=== PATIENT | female | born 1960 | race Caucasian/White ===

== ENCOUNTER 2018-11-13 00:56 | Outpatient (CLI) | payer OTHER ==
--- NOTE | 2018-11-16 13:34 | EKG ---
Test Reason : Blood Pressure : / mmHG Vent. Rate : 077 BPM Atrial Rate : 077 BPM P-R Int : 134 ms QRS Dur : 078 ms QT Int : 382 ms P-R-T Axes : 051 015 065 degrees QTc Int : 432 ms Normal sinus rhythm Low voltage QRS Cannot rule out Anterior infarct , age undetermined Abnormal ECG No previous ECGs available Confirmed by DR. Mushtaq JOY ([id number]) on 11/16/2018 1:34:19 PM Referred By: TRINO Confirmed By:DR. Mushtaq JOY
== END 2018-11-13 00:57 | disposition home or self-care (01) ==
LOC: LABBT 00:56
PROVIDERS: ATTEND Obstetrics & Gynecology
DX: Z01.818 Encounter for other preprocedural examination (principal); N83.201 Unspecified ovarian cyst, right side; R10.2 Pelvic and perineal pain
CPT/HCPCS: 93005; 93010

== ENCOUNTER 2018-11-14 09:09 | Day surgery (SDC) | payer OTHER ==
[2018-11-13 17:11] VITALS: BMI 29.2
[2018-11-13 17:59] LABS: Hemoglobin 13.8 g/dL (12.0-16.0); Mean Corpuscular HGB CONC 35.2 g/dL (32.0-36.0); Mean Corpuscular Hemoglobin 32.9 pg (27.0-31.0); Mean Corpuscular Volume 93.6 fL (78.0-98.0); Mean Platelet Volume 6.9 fL (7.4-10.4); Platelet Count 360 thou/uL (130-400); RBC Distribution Width 11.5 % (11.5-14.5); White Blood Cell (WBC) Count 7.8 thou/uL (4.8-10.8)
[2018-11-13 18:16] LABS: Anion Gap 12 mmol/L (10-20); BUN (Urea Nitrogen) 8 mg/dL (9.8-20.1); Calc. Creatinine Clearance 0 mL/min (70-130); Calcium 9.8 mg/dL (7.8-10.44); Carbon Dioxide 26 mmol/L (22-29); Chloride 103 mmol/L (98-107); Estimated GFR-MDRD 85; Glucose 110 mg/dL (70-105); Potassium 3.9 mmol/L (3.5-5.1); Sodium 137 mmol/L (136-145)
--- NOTE | 2018-11-13 21:52 | HP ---
SCHEDULED PROCEDURE: Laparoscopic BSO with Da Jacques. HISTORY OF PRESENT ILLNESS: Ms. Pearson is a 57-year-old, status post hysterectomy, has a long history of recurrent right lower quadrant pain associated with recurrent simple cyst of the right adnexa. She is postmenopausal. She desires definitive surgical management and prophylactic left salpingo-oophorectomy. TABLE GAMES DEALER HISTORY: x2, SAB x1. Post hysterectomy. Negative Pap. PAST MEDICAL HISTORY: Significant for pelvic pain, hypertension, hyperlipidemia, and hypothyroidism. PAST SURGICAL HISTORY: Hysterectomy, BTL, and colonoscopy. SOCIAL HISTORY: Denies tobacco, alcohol, or drug abuse. ALLERGIES: NONE. MEDICATIONS: 1. Atorvastatin. 2. Citalopram. 3. Cyclobenzaprine. 4. Estradiol. 5. Lisinopril. 6. HCTZ. 7. Synthroid. PHYSICAL EXAMINATION: VITAL SIGNS: White female, 5 feet, 2 inches, weight 167, BMI 30, and blood pressure 132/64. HEENT: Within normal limits. LUNGS: Clear to auscultation bilaterally. HEART: Regular rhythm. BREASTS: No masses bilaterally. ABDOMEN: Soft and nontender. No rebound or guarding. GENITALIA: Vulva without lesions. Vagina without discharge. Vaginal cuff intact. Bimanual exam reveals no masses, but discomfort in the right lower quadrant on bimanual. EXTREMITIES: Without clubbing, cyanosis, or edema. DIAGNOSTIC STUDIES: Ultrasound reveals a 3 cm simple right ovarian cyst without septations or free fluid. Left adnexa is within normal limits. IMPRESSION: Persistent recurrent right lower quadrant pain that seems to be associated with right ovarian cyst. PLAN: I discussed with the patient options. We will proceed with laparoscopic BSO with removal of right ovary as well as left ovary too. The patient understands risks and benefits of procedure. Administer appropriate antibiotic and DVT prophylaxis. Job ID: [id number]
[2018-11-14] MEDS ORDERED: Ondansetron PF 4 MG/2 ML Vial ONE (09:47)
[2018-11-14] MEDS ORDERED: Rocuronium Bromide 10 MG/ML (10ML VIAL) ONE (09:47)
[2018-11-14] MEDS ORDERED: Dexamethasone 20 MG/5 ML VIAL ONE (09:47)
[2018-11-14] MEDS ORDERED: PROPOFOL 200 MG/20 ML VIAL ONE (09:47)
[2018-11-14] MEDS ORDERED: Glycopyrrolate 0.2 MG/ML 5 ML SYRINGE ONE (09:47)
[2018-11-14] MEDS ORDERED: ePHEDrine 50 MG/ML VIAL ONE (09:47)
[2018-11-14] MEDS ORDERED: Lidocaine 1% PF 5 ML VIAL ONE (09:47)
[2018-11-14] MEDS ORDERED: Gabapentin 300 MG CAP ONE (10:17)
[2018-11-14] MEDS ORDERED: Famotidine/PF 20 mg/2ml Vial ONE (10:17)
[2018-11-14] MEDS ORDERED: CeleCOXIB 100 MG CAP ONE (10:17)
[2018-11-14] MEDS ORDERED: Fentanyl 100 MCG/2 ML VIAL ONE ×3 (12:29→14:50)
[2018-11-14] MEDS ORDERED: Bupivacaine HCl 0.5%/Epinephrine 1:200,000/PF 30 ml Vial ONE (12:34)
[2018-11-14] MEDS ORDERED: Morphine 2 MG/ML SYRINGE ONE (16:56)
[2018-11-14 18:16] LABS: Hemoglobin 13.4 g/dL (12.0-16.0); Mean Corpuscular HGB CONC 33.8 g/dL (32.0-36.0); Mean Corpuscular Volume 94.6 fL (78.0-98.0); Mean Platelet Volume 6.7 fL (7.4-10.4); Platelet Count 335 thou/uL (130-400); RBC Distribution Width 11.6 % (11.5-14.5); Red Blood Cell (RBC) Count 4.19 mill/uL (4.20-5.40); White Blood Cell (WBC) Count 12.6 thou/uL (4.8-10.8)
[2018-11-14] MEDS ORDERED: HYDROcodone/Acetaminophen 5/325 mg Tablet ONE (19:14)
--- NOTE | 2018-11-14 20:43 | OP ---
DATE OF PROCEDURE: 11/14/2018 PREOPERATIVE DIAGNOSIS: Chronic right pelvic pain with recurrent right simple ovarian cyst, desires prophylactic left salpingo-oophorectomy. PROCEDURE PERFORMED: Laparoscopic bilateral salpingo-oophorectomy. SNUFF DRIER: Valerie Carvalho DO. ANESTHESIA: General endotracheal. ESTIMATED BLOOD LOSS: Less than 10 mL. MEDICATIONS: 2 g Ancef preincision. SPECIMENS REMOVED: Bilateral tubes and ovaries. OPERATIVE FINDINGS: 1. Right tube and ovary with small simple cyst. Minimal adhesions along the right pelvic wall, status post hysterectomy. 2. Left tube and ovary without pathologic abnormality, but with multiple adhesions to the appendices epiploicae on the descending and sigmoid colon on the left side. 3. Good hemostasis, clear urine. COUNTS: Correct at the end of the procedure. DISPOSITION: Recovery room in good condition. DESCRIPTION OF PROCEDURE: After obtaining appropriate informed consent, the patient was taken to the operating room where general endotracheal anesthesia was achieved without difficulty. The patient was prepped and draped in dorsal lithotomy position in Jese stirrups. Sponge stick placed in the vagina and a Mckenzie catheter placed, draining the bladder of approximately 200 mL of clear urine. Orchard Sprayer changed his gloves, turned attention to abdominal portion of the procedure, 5 mL of Marcaine was injected into the base of the umbilicus, and a 12 mm skin incision was made. Veress needle was placed inside the abdominal cavity. Confirmation of entry into the peritoneal cavity was achieved using saline drop test. Insufflation carried out with carbon dioxide, max pressure of 15, volume approximately 3.5 L. A 12 mm non-cutting trocar was introduced and visual confirmation of entry into the peritoneal cavity without trauma to the underlying viscera was noted. The patient was placed in steep Trendelenburg position. Right and left lateral da Jacques trocars were placed under direct visualization as well as an 11 mm orthotics assistant port in the right upper quadrant. Da Jacques robot was docked with monopolar scissors in the right hand and bipolar fenestrated forceps in the left. Findings as noted in the operative findings were noted. The right tube and ovary were mobilized medially and coagulated along the infundibulopelvic ligament as well as its attachments to the scarred broad ligament on the right detaching and remaining well above the level of the bladder and the ureter. Once it was removed, it was placed in the cul-de-sac for retrieval. On the left, adhesions of the appendices epiploicae were noted and these were taken down in a short manner off the tube, ovary, and remnant broad ligament, then the ovary and tube were mobilized toward the midline, coagulated, and transected through the IP and the remnant broad ligament staying above the level of the ureter. Once both specimens were free, inspection revealed good hemostasis bilaterally. Retrieval bag was placed into the 11 mm trocar. Both specimens placed inside and the ovaries were removed through the 11 mm trocar. Da Jacques robot undocked. Abdomen was desufflated of carbon dioxide. Trocars removed x4. Fascia at the umbilicus reapproximated using 0-Vicryl UR5 and skin reapproximated x4 using 4-0 Monocryl and Dermabond. Mckenzie catheter removed and sponge were removed from the vagina. Job ID: [id number]
== END 2018-11-14 19:55 | disposition home or self-care (01) ==
LOC: SDC 09:09
PROVIDERS: ATTEND Obstetrics & Gynecology
PROC: 0UT74ZZ Resection of Bilateral Fallopian Tubes, Percutaneous Endoscopic Approach (ICD-10-PCS; principal; 2018-11-14)
PROC: 0UT24ZZ Resection of Bilateral Ovaries, Percutaneous Endoscopic Approach (ICD-10-PCS; principal; 2018-11-14)
DX: N83.201 Unspecified ovarian cyst, right side (principal); G89.29 Other chronic pain; R10.2 Pelvic and perineal pain; I10 Essential (primary) hypertension; E78.5 Hyperlipidemia, unspecified; E03.9 Hypothyroidism, unspecified; Z79.899 Other long term (current) drug therapy
CPT/HCPCS: 36415; 80048; 85027; 86850; 86900; 86901; 88305; J0670; J0690; J1100; J2001; J2270; J2405; J2704; J3010; J3490; S0028

== ENCOUNTER 2018-11-26 10:02 | Outpatient (CLI) | payer OTHER ==
--- NOTE | 2018-11-26 11:23 | MRI ---
MR CERVICAL SPINE WITHOUT CONTRAST INDICATION: Cervical radiculopathy and neck pain TECHNIQUE: Multiplanar multisequence MR images were obtained of the cervical spine without contrast. COMPARISON: None FINDINGS: Posterior fossa: Within normal limits. Bone marrow signal intensity: Normal Spinal alignment: There is straightening of the normal cervical lordosis. Craniocervical junction: Normal appearing. Prevertebral and perivertebral soft tissues: Visualized soft tissues appear within normal limits. Vertebral levels: C2-C3: There is a small central disc protrusion. There is no appreciable central canal or neural fora enedina narrowing. C3-4: There is [id number] left-sided facet joint degenerative change. There is a mild broad-bas ed disc bulge. C4-5: There is mild facet joint degenerative change but no appreciable central canal or neural florentino inal narrowing. There is a mild broad-based bulge. C5-C6: There is mild facet joint degenerative change but no appreciable central canal or neural florentino inal narrowing. There is a mild broad-based disc bulge. C6-C7:, There is mild facet joint degenerative change and mild broad-based bulge but no appreciable c entral canal or neural foraminal narrowing. C7-T1: No appreciable central canal or neuroforaminal narrowing. IMPRESSION: 1. Mild spondylosis of the cervical spine without appreciable central canal or neural foraminal narro wing.
== END 2018-11-26 10:03 | disposition home or self-care (01) ==
LOC: TBSIIMAG 10:02
PROVIDERS: ATTEND Neurological Surgery
DX: M47.22 Other spondylosis with radiculopathy, cervical region (principal)
CPT/HCPCS: 72141

== ENCOUNTER 2019-02-04 13:48 | Outpatient (CLI) | payer OTHER ==
--- NOTE | 2019-02-04 15:29 | MMO ---
Right Breast MAMMO Unilat Diag DDI RT+AMPARO. CLINICAL HISTORY: Patient is 58 years old and is seen for diagnostic exam,lump or thickening at 3 o'clock and pain in the right breast. The patient has the following family history of breast cancer: maternal aunt and cousin female. The patient has no personal history of cancer. VIEWS: The views performed were: right craniocaudal with tomosynthesis; right mediolateral oblique with tomosynthesis; and right mediolateral with tomosynthesis. FILMS COMPARED: The present examination has been compared to prior imaging studies performed at [facility] on 01/24/2007, at [facility] on 08/22/2018, and at [facility] on 10/23/2016 and 02/04/2019. MAMMOGRAM FINDINGS: There are scattered fibroglandular densities. There are no suspicious masses, calcifications or areas of architectural distortion. There are benign appearing calcifications in the right breast. There are no suspicious masses, suspicious calcifications, or new areas of architectural distortion. IMPRESSION: THERE IS NO MAMMOGRAPHIC EVIDENCE OF MALIGNANCY. WITH REGARD TO THE PALPABLE FOCUS, FURTHER EVALUATION INCLUDING ADDITIONAL IMAGING AND/OR BIOPSY SHOULD BE BASED ON CLINICAL FINDINGS/SUSPICION. A ROUTINE FOLLOW-UP MAMMOGRAM IN 1 YEAR IS RECOMMENDED. THE RESULTS OF THIS EXAM WERE SENT TO THE PATIENT. ACR BI-RADS Category 2 - Benign finding MAMMOGRAPHY NOTE: 1. A negative mammogram report should not delay a biopsy if a dominant of clinically suspicious mass is present. 2. Approximately 10% to 15% of breast cancers are not detected by mammography. 3. Adenosis and dense breasts may obscure an underlying neoplasm. Reported by: IZABELA GARCIA MD Electonically Signed: [id number]
--- NOTE | 2019-02-04 15:35 | ULT ---
RIGHT BREAST ULTRASOUND: 02/04/19 HISTORY: Right breast pain. Palpable focus in the inner lower right breast. TECHNIQUE: Targeted sonographic imaging of the right breast is performed. Static images are reviewed. After read ing the static images, real time imaging was also performed by the radiologist. The region of palpable concern was also palpated by the radiologist. FINDINGS: Static and real time images demonstrate normal fibroglandular tissue. No solid or cystic masses. No d istortion or shadowing. In the region of concern, there is a focal lobulation of breast parenchyma. IMPRESSION: BIRADS 2: Benign Finding(s) Routine annual screening mammography (for women over age 40). RECOMMENDATION: With regard to the palpable focus, further evaluation including additional imaging and/or biopsy can be based upon clinical finding and/or suspicion. POS: CAITLIN
== END 2019-02-04 13:49 | disposition home or self-care (01) ==
LOC: BICMAMMO 13:48
PROVIDERS: ATTEND Obstetrics & Gynecology
DX: N63.10 Unspecified lump in the right breast, unspecified quadrant (principal); Z80.3 Family history of malignant neoplasm of breast
CPT/HCPCS: 77066; G0279

== ENCOUNTER 2020-03-14 19:39 | Emergency (ER) | payer BC, OTHER ==
--- NOTE | 2020-03-14 20:33 | CT ---
CT Brain WO Con History: Headache Comparison: None. Findings: No acute hemorrhage or infarct. No midline shift or mass effect. Ventricular size and extra -axial CSF spaces are normal. Calvarium is intact. Mucosal thickening of the left sphenoid sinus. Impression: Moderate left sphenoid sinusitis otherwise no acute intracranial abnormality.
[2020-03-14] MEDS ORDERED: Acetaminophen 500 MG TAB ONE (21:20)
[2020-03-14] MEDS ORDERED: Ondansetron ODT 4 MG TAB ONE (21:20)
== END 2020-03-14 22:08 | disposition home or self-care (01) ==
LOC: ERS 19:39
DX: S06.0X0A Concussion without loss of consciousness, initial encounter (principal); M32.9 Systemic lupus erythematosus, unspecified; F43.10 Post-traumatic stress disorder, unspecified; Z79.899 Other long term (current) drug therapy; W01.198A Fall on same level from slipping, tripping and stumbling with subsequent striking against other object, initial encounter
CPT/HCPCS: 70450; Q0162

== ENCOUNTER 2021-01-10 06:19 | Observation (INO) | payer BC ==
[2021-01-10 17:41] VITALS: BMI 30.4
[2021-01-11 16:08] VITALS: BP 131/78; TEMP 97.9
== END 2021-01-11 18:08 | disposition home or self-care (01) ==
LOC: ERS 06:19 → ERHOLD 09:15 → 2SE 17:36
PROVIDERS: ADMIT Internal Medicine; ATTEND Internal Medicine
DX: R42 Dizziness and giddiness (principal); I10 Essential (primary) hypertension; E78.5 Hyperlipidemia, unspecified; E03.9 Hypothyroidism, unspecified; R30.0 Dysuria; D89.89 Other specified disorders involving the immune mechanism, not elsewhere classified; Z20.822 Contact with and (suspected) exposure to COVID-19; Z79.899 Other long term (current) drug therapy
CPT/HCPCS: 36415; 70450; 70551; 80048; 80053; 80061; 81003; 83036; 83605; 84484; 85025; 85652; 86140; 87086; 90471; 90732; 93005; 93306; 93880; 96374; G0009; G0378; J2405; U0002; U0005

== ENCOUNTER 2021-01-19 12:50 | Observation (INO) | payer BC ==
[2021-01-19 13:35] LABS: #Basophils 0.1 thou/uL (0.0-0.2); #Eosinphils 0.2 thou/uL (0.0-0.7); #Lymphocytes 2.1 thou/uL (1.20-3.40); #Monocytes 0.6 thou/uL (0.11-0.59); #Neutrophils 4.7 thou/uL (1.40-6.50); %Basophils 1.3 % (0.0-1.0); %Lymphocytes 27.5 % (21.0-51.0); %Monocytes 7.4 % (0.0-10.0); %Neutrophils 61.8 % (42.0-75.0); Mean Corpuscular HGB CONC 33.1 g/dL (32.0-36.0); Mean Corpuscular Hemoglobin 30.9 pg (27.0-31.0); Mean Corpuscular Volume 93.5 fL (78.0-98.0); Mean Platelet Volume 7.1 fL (7.4-10.4); Platelet Count 318 thou/uL (130-400); RBC Distribution Width 12.1 % (11.5-14.5); Red Blood Cell (RBC) Count 4.85 mill/uL (4.20-5.40); White Blood Cell (WBC) Count 7.6 thou/uL (4.8-10.8)
[2021-01-19] MEDS ORDERED: Aspirin Chewable 81 MG TAB ONE (13:44)
[2021-01-19] MEDS ORDERED: Nitroglycerin 2% Ointment 1 INCH/1 GM Packet ONE (13:44)
[2021-01-19 14:01] LABS: ALT (SGPT) 35 U/L (8-55); AST (SGOT) 13 U/L (5-34); Albumin 4.7 g/dL (3.5-5.0); Alkaline Phosphatase 58 U/L (40-110); Anion Gap 14 mmol/L (10-20); BUN (Urea Nitrogen) 10 mg/dL (9.8-20.1); Bilirubin, Total 0.8 mg/dL (0.2-1.2); Calc. Creatinine Clearance 0 mL/min (70-130); Calcium 9.5 mg/dL (7.8-10.44); Carbon Dioxide 26 mmol/L (22-29); Chloride 97 mmol/L (98-107); Globulin 2.9 g/dL (2.4-3.5); Glucose 130 mg/dL (70-105); Potassium 3.8 mmol/L (3.5-5.1); Protein, Total 7.6 g/dL (6.0-8.3); Sodium 133 mmol/L (136-145)
[2021-01-19] MEDS ORDERED: Nitroglycerin 0.4 MG TAB (25 Tab Bottle) SL PRN (16:34)
[2021-01-19 16:44] LABS: Troponin I Less than 0.010 ng/mL (< 0.028)
[2021-01-19] MEDS ORDERED: Aspirin 325 MG TAB PO SCH (16:45)
[2021-01-19 20:44] LABS: Troponin I Less than 0.010 ng/mL (< 0.028)
[2021-01-19] MEDS: Acetaminophen 325 MG TAB PO PRN (20:58)
[2021-01-19] MEDS ORDERED: Atorvastatin Calcium 40 MG TAB PO SCH (21:00)
[2021-01-19 21:59] VITALS: BMI 28.9
[2021-01-20] MEDS: Acetaminophen 325 MG TAB PO PRN ×3 (03:03→12:05)
[2021-01-20 05:23] LABS: Cardiac Risk 3.8 (Less than 4.5)
[2021-01-20] MEDS ORDERED: Levothyroxine Sodium 100 MCG TAB PO SCH ×2 (06:00)
[2021-01-20] MEDS ORDERED: Aspirin Chewable 81 MG TAB PO SCH (09:00)
[2021-01-20 12:26] VITALS: BP 141/72; TEMP 98.6
== END 2021-01-20 14:27 | disposition home or self-care (01) ==
LOC: ERS 12:50 → ERHOLD 15:47 → 2NO 19:19
PROVIDERS: ADMIT Emergency Medicine; ATTEND Internal Medicine
DX: R07.89 Other chest pain (principal); E78.5 Hyperlipidemia, unspecified; I10 Essential (primary) hypertension; R42 Dizziness and giddiness; E03.9 Hypothyroidism, unspecified; K76.0 Fatty (change of) liver, not elsewhere classified; M35.9 Systemic involvement of connective tissue, unspecified; E87.8 Other disorders of electrolyte and fluid balance, not elsewhere classified; Z79.899 Other long term (current) drug therapy
CPT/HCPCS: 36415; 71045; 76705; 78452; 80053; 80061; 83690; 84484; 85025; 85379; 93005; 93017; 94760; A9500; G0378

== ENCOUNTER 2022-05-17 16:40 | Emergency (ER) | payer BC, OTHER ==
[2022-05-17 17:08] LABS: #Basophils 0.1 thou/uL (0.0-0.2); #Eosinphils 0.2 thou/uL (0.0-0.7); #Lymphocytes 2.9 thou/uL (1.20-3.40); #Monocytes 0.4 thou/uL (0.11-0.59); #Neutrophils 2.5 thou/uL (1.40-6.50); %Basophils 1.6 % (0.0-1.0); %Eosinophils 3.5 % (0.0-10.0); %Lymphocytes 47.4 % (21.0-51.0); %Monocytes 6.2 % (0.0-10.0); %Neutrophils 41.3 % (42.0-75.0); Hemoglobin 14.6 g/dL (12.0-16.0); Mean Corpuscular HGB CONC 33.8 g/dL (32.0-36.0); Mean Corpuscular Hemoglobin 32.5 pg (27.0-31.0); Mean Corpuscular Volume 96.2 fl (78.0-98.0); Mean Platelet Volume 7.3 fL (7.4-10.4); Platelet Count 257 10x3/uL (130-400); RBC Distribution Width 11.5 % (11.5-14.5); Red Blood Cell (RBC) Count 4.49 mill/uL (4.20-5.40); White Blood Cell (WBC) Count 6.1 10x3/uL (4.8-10.8)
[2022-05-17 17:26] LABS: ALT (SGPT) 32 U/L (8-55); AST (SGOT) 13 U/L (5-34); Albumin 4.5 g/dL (3.5-5.0); Alkaline Phosphatase 58 U/L (40-110); Anion Gap 9 mmol/L (10-20); BUN (Urea Nitrogen) 13 mg/dL (9.8-20.1); Bilirubin, Total 0.3 mg/dL (0.2-1.2); Calc. Creatinine Clearance 0 mL/min (70-130); Calcium 9.7 mg/dL (7.8-10.44); Carbon Dioxide 33 mmol/L (22-29); Chloride 101 mmol/L (98-107); Estimated GFR 93; Globulin 2.7 g/dL (2.4-3.5); Glucose 79 mg/dL (70-105); Lipase 198 U/L (8-78); Potassium 4.1 mmol/L (3.5-5.1); Protein, Total 7.2 g/dL (6.0-8.3); Sodium 139 mmol/L (136-145)
[2022-05-17] MEDS ORDERED: Lidocaine Viscous Sol 2% 15 ml UD Cup ONE (17:37)
[2022-05-17] MEDS ORDERED: Mag-Al 1200 mg/1200 mg/30 ML UDCUP ONE (17:37)
[2022-05-17 19:04] LABS: Bilirubin Negative (Negative); Blood, Urine Negative (Negative); Clarity Clear (Clear); Glucose, Urine (Dipstick) Normal (Negative); Ketone, Urine Negative (Negative); Leukocyte Negative Leu/uL (Negative); Nitrite Negative (Negative); Protein, Urine (Dipstick) Negative (Neg-Trace); Specific Gravity, Urine 1.008 (1.002-1.036); Urobilinogen Normal mg/dL (Less than 2)
[2022-05-17] MEDS ORDERED: Morphine 4 MG/ML VIAL ONE (20:39)
== END 2022-05-17 22:42 | disposition home or self-care (01) ==
LOC: ERS 16:40
DX: R10.12 Left upper quadrant pain (principal); I10 Essential (primary) hypertension; E78.5 Hyperlipidemia, unspecified
CPT/HCPCS: 36415; 71045; 74177; 80053; 81003; 83690; 84484; 85025; 93005; 96374; J2270